=== PATIENT | female | born 1990 | race American Indian/Alaskan Native ===

== ENCOUNTER 2016-09-29 15:08 | Emergency (ER) | payer MEDICAID, OTHER ==
[2016-09-29] MEDS ORDERED: Sodium Chloride 0.9% 1,000 ML IV ONE (15:22)
[2016-09-29] MEDS ORDERED: Sodium Chloride 0.9% 1,000 ML ONE (15:26)
--- NOTE | 2016-09-29 15:42 | C.PDOC ---
Time Seen by Provider: 09/29/16 15:28 Chief Complaint (Nursing): Abdominal Pain Past Medical History Family History: States: Unknown Family Hx - Social History Hx Alcohol Use: Yes Hx Substance Use: No Disposition - Disposition Forms: [employer] ([place])
--- NOTE | 2016-09-29 15:43 | C.PDOC ---
History Of Present Illness 26 Y/O FEMALE, , WHO STATES SHE IS APPX 8.5 WKS , C/O INTERMITTENT LOWER ABDOMINAL PAIN OVER LAST 4 DAYS. PT STATES PAIN BECAME SHARP TODAY, PROMPTING VISIT. DENIES URINARY SYMPTOMS OR VAGINAL BLEEDING. NOTES SHE HAS HAD PRIOR OB VISIT, WITH NEXT FOLLOW UP ON 10/14. NO ULTRASOUND YET PERFORMED. DENIES ANY OTHER COMPLAINTS. Time Seen by Provider: 09/29/16 15:28 Chief Complaint (Nursing): Abdominal Pain History Per: Patient History/Exam Limitations: no limitations Onset/Duration Of Symptoms: Days Current Symptoms Are (Timing): Still Present Quality Of Discomfort: "Pain" Associated Symptoms: denies: Fever, Chills, Nausea, Vomiting, Diarrhea, Urinary Symptoms Recent travel outside of the [place]: No Abnormal Vaginal Bleeding: No Last Menstral Period: 07/22/16 Past Medical History Reviewed: Historical Data, Nursing Documentation, Vital Signs - Medical History PMH: No Chronic Diseases Family History: States: Unknown Family Hx - Social History Hx Alcohol Use: Yes Hx Substance Use: No Review Of Systems Except As Marked, All Systems Reviewed And Found Negative. Constitutional: Negative for: Fever, Chills Cardiovascular: Negative for: Chest Pain Respiratory: Negative for: Cough Gastrointestinal: Positive for: Abdominal Pain. Negative for: Nausea, Vomiting Genitourinary: Negative for: Dysuria, Frequency, Hematuria, Vaginal Discharge, Vaginal Bleeding, Pelvic Pain Skin: Negative for: Rash Physical Exam - Physical Exam Appears: Non-toxic, No Acute Distress Skin: Normal Color, Warm, Dry Head: Atraumatic, Normacephalic Oral Mucosa: Moist Chest: Symmetrical Cardiovascular: Rhythm Regular Respiratory: Normal Breath Sounds, No Rales, No Rhonchi, No Wheezing Gastrointestinal/Abdominal: Soft, No Tenderness, No Guarding, No Rebound, Other (EARLY IUP GRAVID, NO FOCAL TENDERNESS) Back: Normal Inspection, No CVA Tenderness Extremity: Normal ROM, Capillary Refill (< 2 SEC.) Neurological/Psych: Oriented x3, Normal Speech, Normal Cognition ED Course And Treatment - Laboratory Results Result Diagrams: 09/29/16 15:37 09/29/16 15:37 Pulse Ox Interpretation: Normal - CT Scan/US OB ULTRASOUND Other Rad Studies (CT/US): Read By Radiologist, Radiology Report Reviewed CT/US Interpretation: Findings: There is a single living fetus in variable presentation. Low lying placenta approximately 1.8 cm away from the os. Posterior placenta. 3 x 3 x 1.6 cm hypoechoic region posterior to the placenta, possibly venous campo. The right ovary is not visualized. The left ovary measures approximately 3.3 x 2.3 x 2.6 cm. Blood flow is demonstrated to the left ovary. Measurements and calculations: Fetus has a composite sonographic age of 16 weeks 3 days. This calculation is based on the biparietal diameter, head circumference, abdominal circumference, and femur length. Estimated heart rate 152 beats per min. Impression: Single living fetus with a composite sonographic age of 16 weeks 3 days. Estimated heart rate 152 beats per min. Low-lying placenta terminating approximately 1.8 cm away from the os. 3 x 3 x 1.6 cm hypoechoic region posterior to the placenta, possibly venous campo. Advise an outpatient anomaly screen at 16-18 weeks gestational age. Disposition Counseled Patient/Family Regarding: Studies Performed, Diagnosis, Need For Followup - Disposition Referrals: YOUR,OBGYN [Other] Disposition: HOME/ ROUTINE Disposition Time: 17:19 Condition: GOOD Instructions: Threatened Miscarriage (ED) Forms: [employer] (Iranian) - Clinical Impression Clinical Impression: Pelvic pain during , Threatened - Scribe Statement The provider has reviewed the documentation as recorded by the Jan[facility] [place] Provider Attestation: All medical record entries made by the Janes were at my direction and personally dictated by me. I have reviewed the chart and agree that the record accurately reflects my personal performance of the history, physical exam, medical decision making, and the department course for this patient. I have also personally directed, reviewed, and agree with the discharge instructions and disposition.
[2016-09-29 15:45] LABS: BASO # 0.1 K/uL (0.0-0.2); BASO % 0.6 % (0.0-2.0); EOS # 0.1 K/uL (0.0-0.7); EOS % 0.5 % (0.0-4.0); LYMPH # 2.4 K/uL (1.0-4.3); LYMPH % 19.4 % (20.0-40.0); MEAN CELL VOLUME 83.2 fL (81.0-99.0); MEAN CORPUSCULAR HGB CONC 31.2 g/dL (33.0-37.0); MEAN PLATELET VOLUME 10.5 fL (7.2-11.7); MONO # 0.8 K/uL (0.0-0.8); MONO % 6.2 % (0.0-10.0); NEUT % 73.3 % (50.0-75.0); RBC 4.23 Mil/uL (3.80-5.20); RED CELL DISTRIBUTION WIDTH 14.1 % (11.5-14.5); WHITE BLOOD COUNT 12.3 K/uL (4.8-10.8)
[2016-09-29 15:49] LABS: HCG,QUALITATIVE URINE POSITIVE (NEGATIVE)
[2016-09-29 15:54] LABS: ALBUMIN 3.7 g/dL (3.5-5.0)
[2016-09-29 15:55] LABS: SQUAMOUS EPITHIAL 6 /hpf (0-5); URINE BILIRUBIN NEGATIVE (NEGATIVE); URINE BLOOD NEGATIVE (NEGATIVE); URINE CLARITY Hazy (Clear); URINE COLOR Yellow (YELLOW); URINE GLUCOSE (UA) NORMAL (Normal); URINE LEUKOCYTE ESTERASE 1+ Leu/uL (Negative); URINE NITRATE NEGATIVE (NEGATIVE); URINE PROTEIN NEGATIVE (NEGATIVE); URINE UROBILINOGEN NORMAL mg/dL (0.2-1.0)
[2016-09-29 15:56] LABS: GFR AFRICAN-AMERICAN > 60; GFR NON-AFRICAN AMERICAN > 60
[2016-09-29 15:57] LABS: ALB/GLOB RATIO 0.9 (1.0-2.1); ALT/SGPT 33 U/L (9-52); AST/SGOT 25 U/L (14-36); BLOOD UREA NITROGEN 9 mg/dL (7-17); CALCIUM 9.7 mg/dl (8.6-10.4)
--- NOTE | 2016-09-29 17:06 | US ---
Indication: /abdominal pain Comparison: None available Technique: Real-time ultrasound was performed through the pelvis. Findings: There is a single living fetus in variable presentation. Low lying placenta approximately 1.8 cm away from the os. Posterior placenta. 3 x 3 x 1.6 cm hypoechoic region posterior to the placenta, possibly venous campo. The right ovary is not visualized. The left ovary measures approximately 3.3 x 2.3 x 2.6 cm. Blood flow is demonstrated to the left ovary. Measurements and calculations: Fetus has a composite sonographic age of 16 weeks 3 days. This calculation is based on the biparietal diameter, head circumference, abdominal circumference, and femur length. Estimated heart rate 152 beats per min. Impression: Single living fetus with a composite sonographic age of 16 weeks 3 days. Estimated heart rate 152 beats per min. Low-lying placenta terminating approximately 1.8 cm away from the os. 3 x 3 x 1.6 cm hypoechoic region posterior to the placenta, possibly venous campo. Advise an outpatient anomaly screen at 16-18 weeks gestational age.
[2016-09-29 17:26] VITALS: BP 111/75; PULSE 88; RESP 17; TEMP 98.6; O2SAT 100
== END 2016-09-29 17:50 | disposition home or self-care (01) ==
LOC: C.ER 15:08
DX: O20.0 Threatened abortion (principal); R10.2 Pelvic and perineal pain; Z3A.16 16 weeks gestation of pregnancy

== ENCOUNTER 2016-12-15 02:58 | Emergency (ER) | payer MEDICAID ==
[2016-12-15 03:22] VITALS: BMI 31.9
[2016-12-15 03:39] LABS: RBC URINE 2 /hpf (0-3); URINE BACTERIA RARE (<OCC); URINE BILIRUBIN NEGATIVE (NEGATIVE); URINE BLOOD NEGATIVE (NEGATIVE); URINE COLOR Straw (YELLOW); URINE GLUCOSE (UA) NORMAL (Normal); URINE KETONE NEGATIVE (NEGATIVE); URINE LEUKOCYTE ESTERASE TRACE Leu/uL (Negative); URINE PROTEIN NEGATIVE (NEGATIVE); URINE UROBILINOGEN NORMAL mg/dL (0.2-1.0); WBC URINE 3 /hpf (0-5)
--- NOTE | 2016-12-15 03:56 | OBDCSUM ---
Datetime: 12/15/2016 03:55 Discharged to, Provider: Home Follow up at, Provider: clinic Follow up in weeks, Provider: 3-4 Discharge Comment, Provider: dc home ptl given po hyr f/u in cliic in 2-4 days Discharge Diagnosis Prov Other: 27weeks cramping nst
--- NOTE | 2016-12-15 03:57 | OBHP ---
Datetime: 12/15/2016 03:53 IP Adm Impression: , intrauterine IP Chief Complaint Other: cramping IP Admit Plan: Discharge home Admit Comment, IP Provider: at 27+weeks came with c/o cramping and sharp pain x 1 , no pain now , no vb, lof,=fm. no dys obhx primi pmh de med pnv all nkda psh de soch de ve closed ua neg a/p at 27 weks r/o uti, r/o labor dc home ptl given po hyr f/u in cliic in 2-4 days Pelvic Type - PN: Adequate Extremities - PN: Normal Abdomen - PN: Normal Back - PN: Normal Breast - PN: Normal Lungs - PN: Normal Heart - PN: Normal Thyroid - PN: Normal Neurologic - PN: Normal HEENT - PN: Normal General - PN: Normal FHR - Baseline A Provider: 150 Contraction Comments Provider: none Comments, ACOG Physical Exam: gravid,non tender Vital Signs Provider: Reviewed; Within Normal Limits NICHD Variability Prov Fetus A: Moderate 6-25bpm NICHD Accel Fetus A IP Provider: 10X10 FHR Category Provider Fetus A: Category I Dilatation, Provider: 0 Effacement, Provider: 0 Station, Provider: -3 Genitourinary Exam: Normal DTRs - PN: Normal
[2016-12-15 08:49] VITALS: BP 117/61; PULSE 82; RESP 18; TEMP 98.6
== END 2016-12-15 04:01 | disposition home or self-care (01) ==
LOC: C.EROB 02:58
DX: O26.892 Other specified pregnancy related conditions, second trimester (principal); Z3A.27 27 weeks gestation of pregnancy; R10.9 Unspecified abdominal pain

== ENCOUNTER 2017-03-06 00:46 | Emergency (ER) | payer MEDICAID, OTHER ==
--- NOTE | 2017-03-06 01:26 | OBDCSUM ---
Datetime: 03/06/2017 01:25 Discharged to, Provider: Home Follow up at, Provider: 1-2 Follow up in weeks, Provider: clinic Discharge Comment, Provider: dc home labor ins given po hy f/u in 1-2 days Discharge Diagnosis Prov Other: 38+weeks r/o om
--- NOTE | 2017-03-06 01:27 | OBHP ---
Datetime: 03/06/2017 01:22 IP Adm Impression: Term, intrauterine IP Admit Plan: Discharge home Admit Comment, IP Provider: at 38+weeeks came with c/o srom at 10.45. some fluid started leakin g, no ctxs, vb,+fm obhx primi pmh den med pnv all nkda psh de soch de sse neg pooling, neg nitrazine ve closed a/p at 38+weeks r/o rom intact dc home labor ins given po hy f/u in 1-2 days Pelvic Type - PN: Adequate Extremities - PN: Normal Abdomen - PN: Normal Back - PN: Normal Breast - PN: Normal Lungs - PN: Normal Heart - PN: Normal Thyroid - PN: Normal Neurologic - PN: Normal HEENT - PN: Normal General - PN: Normal FHR - Baseline A Provider: 140 Membranes, Provider: Intact Contraction Comments Provider: occ Comments, ACOG Physical Exam: gravid,non tender ext no edema,no calf ten sse neg john, neg nitazie Pool Provider: Negative Nitrazine Provider: Negative EGA AdmitDate IP: 38.4 Vital Signs Provider: Reviewed; Within Normal Limits IP Chief Complaint: Suspected ruptured membranes NICHD Variability Prov Fetus A: Moderate 6-25bpm NICHD Accel Fetus A IP Provider: 15X15 FHR Category Provider Fetus A: Category I Dilatation, Provider: 0 Effacement, Provider: 0 Station, Provider: -3 Genitourinary Exam: Normal DTRs - PN: Normal
[2017-03-06 06:23] VITALS: BP 126/75; PULSE 75; RESP 20; TEMP 97.7
== END 2017-03-06 02:03 | disposition home or self-care (01) ==
LOC: C.EROB 00:46
DX: O26.93 Pregnancy related conditions, unspecified, third trimester (principal); Z3A.38 38 weeks gestation of pregnancy